=== PATIENT | male | born 1955 | race Caucasian/White ===

== ENCOUNTER 2016-11-13 12:37 | Emergency (ER) | payer BC ==
[~2016-11-13] VITALS: Ht 182.9 cm; Wt 89.5 kg
[~2016-11-13 12:37] MED LIST: COZA50TA PO; PRAV40TA2 PO
[2016-11-13 12:42] VITALS: BP 142/80; PULSE 68; RESP 18; TEMP 98.2; O2SAT 97
[2016-11-13] MEDS ORDERED: AMLO5TAB2 PO (12:54)
[2016-11-13] MEDS ORDERED: PRAV40TA2 PO (12:54)
[2016-11-13] MEDS ORDERED: LOSA100T PO (12:54)
--- NOTE | 2016-11-13 13:37 | RADRPT ---
EXAM DATE/TIME: 11/13/2016 13:19 [place] COMPARISON: No previous studies available for comparison. INDICATIONS : Left third digit pain after hitting hand MEDICAL HISTORY : None. SURGICAL HISTORY : None. ENCOUNTER: Initial ACUITY: 1 day PAIN SCORE: 2/10 LOCATION: Left mcpj third digit FINDINGS: Examination of the third digit of the left hand demonstrates no evidence of fracture or dislocation. No radiopaque foreign bodies are seen. The soft tissues are intact. CONCLUSION: Negative for fracture or dislocation. Follow up in 7-10 days is suggested if symptoms persist. Shun Richard MD FACR on November 13, 2016 at 13:35 Board Certified Radiologist. This report was verified electronically.
--- NOTE | 2016-11-13 13:40 | PD ---
HPI Chief Complaint: Injury Time Seen by Provider: 13:12 Travel History International Travel<30 days: No Contact w/Intl Traveler<30days: No Traveled to known affect area: No History of Present Illness HPI 61-year-old male presents to the emergency department for evaluation of left third digit pain at the MCP joint. Patient reports while working in the yard he attempted to brush off of lizard on his shoulder injuring the digit. He reports the finger was "dislocated". He reports he self reduced it. He now has pain at the MCP joint. He reports pain with movement. Relieved with rest. He denies numbness or tingling in the extremity. He has full range of motion. Pain severity 4/10. PFSH Past Medical History Medical History: Denies Significant Hx Cancer: No High Cholesterol: Yes Diabetes: No Diminished Hearing: No Glaucoma: No Hepatitis: No Hiatal Hernia: No Hypertension: Yes Kidney Stones: Yes Thyroid Disease: No Tetanus Vaccination: > 5 Years Influenza Vaccination: No ?: Not Past Surgical History Abdominal Surgery: Yes (HERNIA REPAIR) Cardiac Surgery: No Ear Surgery: No Endocrine Surgery: No Eye Surgery: No Genitourinary Surgery: No Gynecologic Surgery: No Oral Surgery: No Pacemaker: No Thoracic Surgery: No Other Surgery: Yes Social History Alcohol Use: Yes (3 BEERS DAILY) Tobacco Use: No Substance Use: No Allergies-Medications (Allergen,Severity, Reaction): Coded Allergies: penicillin G (Unverified Allergy, Mild, 11/13/16) RASH Reported Meds & Prescriptions Reported Meds & Active Scripts Active Reported Amlodipine (Amlodipine Besylate) 5 Mg Tab 5 Mg PO DAILY Losartan (Losartan Potassium) 100 Mg Tab 100 Mg PO HS Pravastatin 40 Mg Tab 40 Mg PO HS Review of Systems Except as stated in HPI: all other systems reviewed are Neg Physical Exam Narrative GENERAL: Well-nourished, well-developed patient. SKIN: Focused skin assessment warm/dry. HEAD: Normocephalic. EYES: No scleral icterus. No injection or drainage. NECK: Supple, trachea midline. No JVD or lymphadenopathy. CARDIOVASCULAR: Regular rate and rhythm without murmurs, gallops, or rubs. RESPIRATORY: Breath sounds equal bilaterally. No accessory muscle use. GASTROINTESTINAL: Abdomen soft, non-tender, nondistended. MUSCULOSKELETAL: No cyanosis, or edema. Left hand: TTP third MCP joint. No dislocation. Normal alignment. Full flexion and extension. Normal sensation. Brisk cap refill. BACK: Nontender without obvious deformity. No CVA tenderness. Data Data Last Documented VS Vital Signs Date Time Temp Pulse Resp B/P (MAP) Pulse Ox O2 Delivery O2 Flow Rate FiO2 11/13/16 12:42 98.2 68 18 142/80 (100) 97 Orders Orders Finger ([id number]) (11/13/16 ) Splint Or Brace Apply/Monitor (11/13/16 13:41) MDM Medical Decision Making Medical Screen Exam Complete: Yes Emergency Medical Condition: Yes Differential Diagnosis Finger dislocation, finger sprain, contusion Narrative Course 61-year-old male with chief complaint of left third digit pain. Patient reports the finger "dislocated". He reports he self reduced it. He now has pain at the MCP joint. He denies numbness or tingling extremity. On exam patient has notable tenderness over the joint. There is normal alignment. Extremities neurovascular intact. He has full range of motion. X-ray pending X-ray left hand Diagnosis Primary Impression: Finger sprain Qualified Codes: S63.653A - Sprain of metacarpophalangeal joint of left middle finger, initial encounter Referrals: Primary Care Physician Additional Instructions: Wear the splint for the next week. Take [id number] Motrin 600-800 mg every 6-8 hours as needed for pain. Ice and elevate the extremity. Follow-up with her primary doctor. Kaplana Salvador Nov 13, 2016 13:40
== END 2016-11-13 14:15 | disposition home or self-care (01) ==
LOC: PHEFT 12:37
DX: S63.653A Sprain of metacarpophalangeal joint of left middle finger, initial encounter (principal); I10 Essential (primary) hypertension; E78.00 Pure hypercholesterolemia, unspecified; Z87.442 Personal history of urinary calculi; X58.XXXA Exposure to other specified factors, initial encounter; Y92.096 Garden or yard of other non-institutional residence as the place of occurrence of the external cause
CPT/HCPCS: 29130; 73140